=== PATIENT | female | born 1955 | race Caucasian/White ===

== ENCOUNTER 2018-07-31 11:04 | Emergency (ER) | payer SELFPAY ==
[2018-07-31] MEDS ORDERED: ACETAMINOPHEN 325 MG TAB PO ONE (11:28)
--- NOTE | 2018-07-31 11:39 | Emergency Department Record ---
History of Present Illness - General Chief Complaint: Fall Injury Stated Complaint: FALL AT WORK Time Seen by Provider: 07/31/18 11:17 Source: Patient Mode of Arrival: Ambulatory Limitations: No limitations - History of Present Illness Initial Comments: The patient is here due to bumping her head at work about 90 minutes ago. She was sitting on an exercise ball and slipped and fell backwards and hit the back of her head on an object and also bruised her L elbow. She had no LOC and since has had a mild PEPPER and mild L elbow pain. There has been no reported nausea, vomiting, balance issues or visual changes. The patient does have a hx of HTN but is not on any blood thinners. MD Complaint: Fall Onset/Timin -: Hour(s) Fall From: Chair When Fall Occurred: 1 hour [employer] Fall Witnessed: Yes, by family Place Fall Occurred: Work Loss of Consciousness: None Prolonged Down Time?: No Symptoms Prior to Fall: None Location: Head Severity: Moderate Severity scale (1-10): 4 Quality: Aching Context: Other Associated Symptoms: Denies - Sanchez Coma Scale Eye Response: (4) Open spontaneously Motor Response: (6) Obeys commands Verbal Response: (5) Oriented Sanchez Total: 15 - Related Data Home Medications Medication Instructions Recorded Confirmed Last Taken Amlodipine Besylate [Norvasc] 10 mg PO DAILY 07/31/18 07/31/18 07/31/18 Hydrochlorothiazide [Hctz] 25 mg PO DAILY 07/31/18 07/31/18 07/31/18 Levothyroxine Sodium 50 mcg PO DAILY 07/31/18 07/31/18 07/31/18 Lisinopril 40 mg PO DAILY 07/31/18 07/31/18 07/31/18 Metformin HCl 500 mg PO BID 07/31/18 07/31/18 07/31/18 Zaleplon 10 mg PO QHS PRN 07/31/18 07/31/18 07/30/18 Allergies Allergy/AdvReac Type Severity Reaction Status Date / Time No Known Drug Allergies Allergy Verified 07/31/18 11:09 Travel Screening - Travel/Exposure Within Last 30 Days Have you traveled within the last 30 days?: No - Travel/Exposure Within Last Year Have you traveled outside the [place] in the last year?: No - Additonal Travel Details Have you been exposed to anyone with a communicable illness?: No - Travel Symptoms Symptom Screening: None Review of Systems Constitutional: Denies: Chills, Fever Eyes: Denies: Eye discharge ENT: Denies: Congestion Respiratory: Denies: Cough, Dyspnea Past Medical History - SOCIAL HISTORY Smoking Status: Never smoker Alcohol Use: None Drug Use: None - RESPIRATORY Hx Respiratory Disorders: No - CARDIOVASCULAR Hx Cardio Disorders: Yes Hx Hypertension: Yes - NEURO Hx Neuro Disorders: No - GI Hx GI Disorders: Yes Hx Liver Disease: Yes - Hx Genitourinary Disorders: Yes Hx Kidney Stones: Yes - ENDOCRINE Hx Endocrine Disorders: Yes Hx Diabetes: Yes Hx Thyroid Disease: Yes - MUSCULOSKELETAL Hx Musculoskeletal Disorders: No - PSYCH Hx Psych Problems: No - HEMATOLOGY/ONCOLOGY Hx Hematology/Oncology Disorders: No Family Medical History Any Significant Family History?: Yes Hx HTN: Father, Mother Physical Exam - General General Appearance: Alert, Oriented x3, Cooperative, No acute distress (The patient is smiling, very pleasant and laughing while giving her hx.) - Head Head exam: Atraumatic (There are no signs of any head trauma.), Normocephalic, Normal inspection Head exam detail: negative: Abrasion, Contusion - Eye Eye exam: Normal appearance, PERRL, EOMI - ENT ENT exam: Normal exam, Mucous membranes moist, Normal external ear exam, Normal orophraynx, TM's normal bilaterally - Neck Neck exam: Normal inspection, Full ROM (There is no pain with flexion and extension of the neck.). negative: Meningismus, Tenderness (There is no posterior midline tenderness.) - Respiratory Respiratory exam: Normal lung sounds bilaterally. negative: Respiratory distress - Cardiovascular Cardiovascular Exam: Regular rate, Normal rhythm, Normal heart sounds - GI/Abdominal GI/Abdominal exam: Soft, Normal bowel sounds. negative: Tenderness - Extremities Extremities exam: Full ROM (There is full ROM of the L elbow with no pain or discomfort.), Normal capillary refill. negative: Normal inspection (There is a minor bruise to the L elbow over the olecranon. ), Tenderness (Very minor tenderness over the L elbow bruise.) - Neurological Neurological exam: Alert, Normal gait, Oriented X3, Other (Neg Drift and Rhomberg exams.). negative: Abnormal gait, Altered, Motor sensory deficit - Psychiatric Psychiatric exam: Normal affect, Normal mood. negative: Agitated, Anxious Course Vital Signs 09/20/18 11:13 Temperature 98.2 F Pulse Rate 87 Respiratory 20 Rate Blood Pressure 145/78 Pulse Ox 97 - Reevaluation(s) Reevaluation #1: The patient is doing very well at this time. Her PEPPER is almost gone and she is very hungry. She is still laughing and smiling and very pleasant to talk with. The patient is exhibiting no signs of any significant head injury and is ready for discharge. 07/31/18 12:10 Disposition Disposition: Discharge Clinical Impression: Contusion of head Qualifiers: Encounter type: initial encounter Contusion of head detail: unspecified part of head Qualified Code(s): S00.93XA - Contusion of unspecified part of head, initial encounter Elbow contusion Qualifiers: Encounter type: initial encounter Laterality: left Qualified Code(s): S50.02XA - Contusion of left elbow, initial encounter Disposition: Home, Self-Care Condition: (2) Stable Instructions: Head Injury (ED) Additional Instructions: Please use Tylenol or Motrin for pain. Please return to the ER for any worsening headache, or any nausea, vomiting, confusion or balance issues. Forms: Patient Portal Access Time of Disposition: 12:13 Quality - Quality Measures Quality Measures: N/A, Blunt Head Trauma (>2yr) - Blunt Head Trauma - Adult Quality Measure: Measure #415: Utilization of CT for Minor Blunt Head Trauma ICD10 Codes Entered: Yes View Details: Yes Was CT ordered: No Does Patient Have Any of the Following: No Exclusions Patient Presented Within 24 Hours of Injury: Yes [place] Score: Please complete Sanchez Coma Scale above Utilization of CT for Minor Blunt Head Trauma: Not Eligible For Measure Additional Inclusion Criteria: More than 24hrs (OR) GCS not 15 (OR) CT not ordered. Not Eligible Reason: CT Not Ordered - Blood Pressure Screening View Details: Yes Does Patient Have Any of the Following: Active Dx of HTN Blood Pressure Classification: Pre-Hypertensive BP Reading Systolic Measurement: 137 Diastolic Measurement: 87 Screening for High Blood Pressure: Patient Exclusion, Hx of HTN [[id number]]
== END 2018-07-31 12:19 | disposition home or self-care (01) ==
LOC: ER 11:04
DX: S00.83XA Contusion of other part of head, initial encounter (principal); S50.02XA Contusion of left elbow, initial encounter; W07.XXXA Fall from chair, initial encounter; Y99.0 Civilian activity done for income or pay; I10 Essential (primary) hypertension
CPT/HCPCS: 99282